=== PATIENT | female | born 1985 | race Two or more races ===

== ENCOUNTER 2019-11-03 10:31 | Inpatient (IN) | payer OTHER ==
[~2019-11-03] VITALS: Ht 160 cm; Wt 69.4 kg
[2019-11-05] MEDS ORDERED: PRENATAL TABLE1 EAC1 PO (08:24)
== END 2019-11-08 14:27 | disposition home or self-care (01) | DRG 788 ==
LOC: LDR 10:31 → OB/GYN 11-05 19:38
PROVIDERS: ADMIT Obstetrics & Gynecology
PROC: 3E033VJ Introduction of Other Hormone into Peripheral Vein, Percutaneous Approach (ICD-10-PCS; 2019-11-05)
PROC: 10907ZC Drainage of Amniotic Fluid, Therapeutic from Products of Conception, Via Natural or Artificial Opening (ICD-10-PCS; 2019-11-05)
PROC: 4A1HXCZ Monitoring of Products of Conception, Cardiac Rate, External Approach (ICD-10-PCS; 2019-11-05)
PROC: 10D00Z1 Extraction of Products of Conception, Low, Open Approach (ICD-10-PCS; principal; 2019-11-05 18:00)
DX: O82 Encounter for cesarean delivery without indication (principal); O61.0 Failed medical induction of labor; Z3A.38 38 weeks gestation of pregnancy; Z37.0 Single live birth